=== PATIENT | male | born 1945 | race African-American/Black ===

== ENCOUNTER 2023-07-15 04:52 | Day surgery (SDC) | payer OTHER ==
[2023-07-14 12:13] VITALS: BMI 22.8
[2023-07-15] MEDS ORDERED: LIDOCAINE HCL 1%, 10 MG/ML (20ML VIAL) ONE (10:23)
[2023-07-15] MEDS ORDERED: LIDOCAINE HCL 1%, 10 MG/ML (20ML VIAL) INF ONE (11:13)
[2023-07-15 13:35] VITALS: RESP 18
[2023-07-15 14:03] VITALS: BP 156/91; PULSE 72; TEMP 97.8
== END 2023-07-15 14:05 | disposition home or self-care (01) ==
LOC: JASU-SURG 04:52
PROVIDERS: ATTEND Orthopaedic Surgery
PROC: 3E0T3TZ Introduction of Destructive Agent into Peripheral Nerves and Plexi, Percutaneous Approach (ICD-10-PCS; principal; 2023-07-15 12:30)
DX: M25.561 Pain in right knee (principal)

== ENCOUNTER 2025-03-06 11:43 | Day surgery (SDC) | payer OTHER ==
[2025-03-06 12:13] LABS: ABSOLUTE IMMATURE GRANULOCYTES 0.05 x10^3/uL (0.0-0.031); BASOPHILS # 0.04 x10^3/uL (0.01-0.08); EOSINOPHIL % 4.9 % (0.8-7.0); EOSINOPHILS # 0.41 x10^3/uL (0.04-0.54); HEMATOCRIT 38.4 % (40.1-51.0); HEMOGLOBIN 11.7 g/dL (13.7-17.5); MCHC 30.5 g/dl (32.3-36.5); MEAN CELL VOLUME 94.3 fl (79.0-92.2); MEAN PLT VOLUME 12.4 fl (9.4-12.4); PLATELET COUNT 145 x10^3/uL (163-337); RDW 15.2 % (12.2-16.6)
[2025-03-06 12:22] LABS: INR 1.1 (0.83-1.09)
[2025-03-06 12:43] LABS: CHLORIDE 101 mmol/L (98-107); POTASSIUM 4.7 mmol/L (3.5-5.1); SODIUM 138 mmol/L (136-145)
[2025-03-06 12:46] LABS: ALBUMIN 3.7 g/dl (3.4-5.0); ANION GAP 9 mmol/L (4-13); BLOOD UREA NITROGEN 56.9 mg/dL (7-18); CALCIUM 9.4 mg/dL (8.5-10.1); CO2 28 mmol/L (21-32); GLUCOSE,RANDOM 92 mg/dL (74-106)
[2025-03-06 12:49] LABS: SGOT/AST 12 U/L (15-37); SGPT/ALT 17 U/L (13-61)
[2025-03-06 12:51] LABS: BILIRUBIN,TOTAL 0.8 mg/dL (0.2-1)
[2025-03-06 12:52] LABS: ALK PHOS 86 U/L (45-117)
[2025-03-06 12:55] LABS: CREATININE 7.6 mg/dL (0.55-1.3)
[2025-03-06] MEDS ORDERED: HEPARIN NA (PORCINE) 5,000 UNITS/ML 1ML VIAL ONE (13:09)
[2025-03-06 13:26] VITALS: RESP 16
[2025-03-06 13:29] VITALS: BP 156/80; PULSE 62
== END 2025-03-06 13:30 | disposition home or self-care (01) ==
LOC: JRADIR 11:43
PROVIDERS: ATTEND Surgery
PROC: B51WYZZ Fluoroscopy of Dialysis Shunt/Fistula using Other Contrast (ICD-10-PCS; principal; 2025-03-06)
PROC: B51NYZZ Fluoroscopy of Left Upper Extremity Veins using Other Contrast (ICD-10-PCS; 2025-03-06)
DX: T82.858A Stenosis of other vascular prosthetic devices, implants and grafts, initial encounter (principal); I12.0 Hypertensive chronic kidney disease with stage 5 chronic kidney disease or end stage renal disease; N18.6 End stage renal disease; Z99.2 Dependence on renal dialysis
CPT/HCPCS: 36012; 36415; 75820-TC-FY; 76000-TC-FY; 80053; 85025; 85610